=== PATIENT | male | born 1990 | race Two or more races ===

== ENCOUNTER 2017-07-17 03:31 | Emergency (ER) | payer SELFPAY, OTHER ==
[2017-07-17] MEDS ORDERED: SOD CHLORIDE 0.9% 0 ML (20:50)
[2017-07-17] MEDS ORDERED: IOHEXOL 300MG/ML 150 ML BTL (20:50)
== END 2017-07-17 05:47 | disposition home or self-care (01) ==
LOC: FTE 05:47
DX: M25.512 Pain in left shoulder (principal); H66.002 Acute suppurative otitis media without spontaneous rupture of ear drum, left ear
CPT/HCPCS: 73000; 73030; 99284-25